=== PATIENT | female | born 1995 | race Caucasian/White ===

== ENCOUNTER → 2018-01-21 | Outpatient (CLI) | DX: Z01.812 Encounter for preprocedural laboratory examination (principal); R31.9 Hematuria, unspecified ==

== ENCOUNTER → 2018-01-27 | Day surgery (SDC) | payer MEDICAID ==
--- NOTE | 2018-01-21 19:31 | MH ---
cc: Juan Del Castillo MD DATE OF ADMISSION: 01/27/2018 ADMISSION DATE: Set for admission on 01/27/2018 for cystoscopy for chronic urinary tract infections and history of gross hematuria. HISTORY OF PRESENT ILLNESS: The patient is a 22-year-old white female, 1, para 1, who has had issues with pelvic pain, bladder discomfort, urinary tract infections and episode of gross hematuria since she had the delivery of her child last year. The patient has been on antibiotics with some limited success and has now opted for cystoscopy. PAST MEDICAL HISTORY: Negative for heart, lung, liver disease, hypertension, diabetes or stroke. 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 PAST SURGICAL HISTORY: None. OB HISTORY: One vaginal delivery, was not particularly complicated, but she did have a catheter placed for 48 hours. ALLERGIES: NONE. MEDICATIONS: None. GYNECOLOGIC HISTORY: No STDs, though she had an abnormal Pap smear and is scheduled for colposcopy next month. SOCIAL HISTORY: Former smoker. FAMILY HISTORY: Noncontributory. REVIEW OF SYSTEMS: As above. No chest pains, orthopnea, PND. No nausea, vomiting, chills, no vaginal bleeding or discharge. PHYSICAL EXAMINATION: VITAL SIGNS: She is afebrile. Vital signs are stable. Blood pressure is 120/70, height is 5 feet 8, weight 138, BMI is 21. GENERAL: Alert and oriented, no acute distress. No sign of cognitive dysfunction, depression. HEENT: Within normal limits. NECK: Supple. No JVD. CHEST: Clear. HEART: Regular rate and rhythm. ABDOMEN: Soft, nontender. No hepatosplenomegaly. No CVA tenderness. PELVIC: Exam will be detailed under anesthesia. EXTREMITIES: Normal. SKIN: No rashes. NEUROLOGIC: Nonfocal. No DVT signs. ASSESSMENT AND PLAN: The patient with history of chronic urinary tract infections and episode of gross hematuria following a relatively uncomplicated vaginal delivery. At this point, we will proceed with diagnostic cystoscopy and appropriate biopsies if need be. The patient is aware of the risks, benefits and alternatives of planned procedure, including damage to surrounding organs, bleeding, infection, and possibility that bleeding and pain issues may not be relieved. We will use antibiotic prophylaxis with Ancef 2 grams and DVT prophylaxis with sequential compression device. MD CARRIE Jay/NURIA/ , 06:12 PM , 06:53 PM [email or web address]
[~2018-01-27] VITALS: Ht 172.7 cm; Wt 62.4 kg
[~2018-01-27] MED LIST: CHLORHEXIDINE GLUCONATE 2 % 1 PACK (2 CLOTHS) TOPICAL PRN; DEXAMETHASONE SOD PHOS 4 MG/ML VIAL IV ONE; DO NOT ADM ANY ANTICOAGULANT DRUGS PRN; IBUP1TAB5 PO; LACTATED RINGER'S 1000 ML IV PRN; LIDOCAINE HCL 1% PF 5 ML SYRINGE OTHER ONE; METOPROLOL TARTRATE 25 MG TAB PO PRN; ONDANSETRON HCL 4 MG/2 ML VIAL IV ONE; POVIDONE IODINE 5% (ANTISEPSIS KIT) 4 APPLICATIONS EACH NARE PRN; PROPOFOL 200 MG/20 ML AMP IV ONE; SODIUM CHLORID 0.9% 500 ML IV PRN; ceFAZolin 2 GM PREMIX 50 ML ONE; ceFAZolin 2 GM/NS PREMIX 100 ML IV SCH
--- NOTE | 2018-01-27 11:00 | MP ---
cc: Juan Del Castillo MD DATE OF OPERATION: 01/27/2018 PREOPERATIVE DIAGNOSES: 1. Chronic urinary tract infection. 2. Bladder pain. POSTOPERATIVE DIAGNOSES: 1. Chronic urinary tract infection. 2. Bladder pain. 3. Mild trigonitis. SURGEON: Dr. Del Castillo ANESTHESIA: Laryngeal mask. BLOOD LOSS: 0. FLUIDS: 1000 mL crystalloid. PROCEDURE: Diagnostic cystoscopy with hydrodistention. FINDINGS: External genitalia normal. POP-Q score: Aa is -2, Ap is -2, point C is -8. Total vaginal length is 10. Genital hiatus is 6. Perineal body is 4. Bimanual exam unremarkable. Cystoscopy shows mild trigonitis but no ulcerations or other suspicious lesions. Bladder capacity is over 400 mL SPECIMEN: None. COMPLICATIONS: None. DISPOSITION: To Recovery stable. COUNTS: Needle and sponge counts correct. DRAINS: None. ANTIBIOTIC PROPHYLAXIS: Ancef 2 grams. DVT PROPHYLAXIS: Sequential compression device. TIMEOUT PROCEDURE AND IDENTIFICATION: Per protocol. INDICATIONS: The patient with issues of bladder pain and chronic urinary infections. This has become more problematic since her delivery last year. DESCRIPTION OF PROCEDURE: The patient was examined in lithotomy position with careful attention paid to the placement of the patient's legs in the stirrups to avoid undue stress to sensitive neurovascular structures. Above findings noted. The bladder was inspected using a 17-[place]namese bridge with a 70-degree scope. Above findings noted. Mild trigonitis was the only significant finding. The patient tolerated the procedure well and was taken to the recovery room in stable condition. RECOMMENDATIONS: We will treat her with a daily dose of 50 mg of Macrodantin and oral antihistamines for symptomatic relief. MD CARRIE Jay/CAMERON , 10:27 AM , 11:00 AM
[2018-01-27 11:05] VITALS: BP 101/61; PULSE 68; RESP 18; TEMP 97.9; O2SAT 100
== END | disposition home or self-care (01) ==
LOC: HSDC 07:34
PROVIDERS: ATTEND Obstetrics & Gynecology Gynecology
DX: N30.31 Trigonitis with hematuria (principal)
CPT/HCPCS: 00910; 52260; J0690; J1100; J2405